=== PATIENT | male | born 2000 | race Two or more races ===

== ENCOUNTER 2023-07-11 11:13 | Emergency (ER) | payer SELFPAY ==
[~2023-07-11] VITALS: Ht 170.2 cm; Wt 113.6 kg
[2023-07-11 11:18] VITALS: TEMP 98.3
[2023-07-11] MEDS ORDERED: TETanus/Pertussis (Acell)/Diphther VAC/PF (Tdap-Adult) 0.5ml syringe IMVAC ONE (11:25)
[2023-07-11] MEDS ORDERED: LIDOcaine 1% 30ml preserv. free vial IJ ONE (11:25)
[2023-07-11] MEDS ORDERED: LIDOcaine 1% W/epiNEPHrine 1:100,000 20ml vial IJ ONE (13:10)
[2023-07-11] MEDS ORDERED: CEPH-585 PO (13:45)
[2023-07-11 14:16] VITALS: BP 141/85; PULSE 82; RESP 15; O2SAT 99
== END 2023-07-11 14:18 | disposition home or self-care (01) ==
LOC: ER 11:13
DX: S01.411A Laceration without foreign body of right cheek and temporomandibular area, initial encounter (principal); S00.83XA Contusion of other part of head, initial encounter; Z79.2 Long term (current) use of antibiotics; W26.0XXA Contact with knife, initial encounter; Y93.89 Activity, other specified; Y92.89 Other specified places as the place of occurrence of the external cause; Y99.8 Other external cause status
CPT/HCPCS: 12011; 90471; 90715; 99283